=== PATIENT | female | born 1940 | race Caucasian/White ===

== ENCOUNTER → 2024-02-26 06:30 | Outpatient (REF) | payer MEDICARE, BC, SELFPAY ==
[2024-02-26 07:25] LABS: % Basophils 0.7 % (0-2); % Eosinophils 1.8 % (0-6); % Immature Granulocytes 0.3 % (0-0.5); % Lymphocytes 19.5 % (20.5-51.1); % Monocytes 7.5 % (1.7-9.3); % Neutrophils 70.2 % (42.2-75.2); Absolute Eosinophils 0.1 10^3/uL (0-0.7); Absolute Lymphocytes 1.2 10^3/uL (1.2-3.4); Absolute Monocytes 0.5 10^3/uL (0.1-0.6); Absolute Neutrophils 4.3 10^3/uL (1.4-6.5); Hematocrit 44.4 % (37.0-47.0); Hemoglobin 14.9 g/dL (12.0-16.0); Mean Corp Hgb Conc. 33.6 g/dL (33.0-37.0); Mean Corpuscular Hgb 31.1 pg (27.0-31.0); Mean Corpuscular Volume 92.7 fL (81.0-99.0); Mean Platelet Volume 10.6 fL (7.4-10.4); Nucleated Red Blood Cells % 0 %; Platelet Count 259 10^3/uL (130-400); Red Blood Cell Count 4.79 10^6/uL (4.20-5.40); Red Cell Dist. Width 12.4 % (11.5-14.5); White Blood Cell Count 6.1 10^3/uL (4.8-10.8)
[2024-02-26 07:33] LABS: Urine Albumin 1+ (Neg - Trace); Urine Bilirubin 1+ (Negative); Urine Character Slightly Cloudy (Clear); Urine Color Yellow; Urine Glucose Negative (Negative); Urine Ketone Trace (Negative); Urine Leukocyte 2+ (Negative); Urine Nitrite Negative (Negative); Urine Occult Blood 2+ (Negative); Urine Urobilinogen Negative (Neg - 1+)
[2024-02-26 07:55] LABS: ALT (SGPT) 18 U/L (0-35); AST (SGOT) 23 U/L (14-36); Albumin 4.1 g/dl (3.5-5.0); Alkaline Phosphatase 77 U/L (38-126); Blood Urea Nitrogen 23 mg/dl (7-17); Calcium 9.3 mg/dl (8.4-10.2); Carbon Dioxide 31 mmol/L (22-30); Chloride 101 mmol/L (98-107); Glucose 99 mg/dl (70-99); HDL Cholesterol 52 mg/dl; LDL Cholesterol, Calculated 90 mg/dl; Potassium 4.4 mmol/L (3.5-5.1); Sodium 139 mmol/L (135-145); Total Bilirubin 0.6 mg/dl (0.2-1.3); Total Cholesterol 158 mg/dl (50-199); Total Protein 6.8 g/dl (6.3-8.2); Triglyceride 81 mg/dl (10-149); Very Low Density Lipoprotein 16 mg/dl (0-30); eGFR > 60.00
[2024-02-26 08:04] LABS: Glycohemoglobin (HgbA1c) 5.5 % (4.0-5.6)
[2024-02-26 08:10] LABS: Urine Squamous Cell SEEN /LPF (Few); Urine White Cell >100 /HPF (0-5)
[2024-02-26 08:11] LABS: Urine Red Blood Cell None Seen /HPF (0-2)
== END ==
LOC: REG 06:30
PROVIDERS: ATTENDING PHYSICIAN Family Medicine
DX: N30.90 Cystitis, unspecified without hematuria (principal); E78.2 Mixed hyperlipidemia; D64.9 Anemia, unspecified; I10 Essential (primary) hypertension; R73.01 Impaired fasting glucose
CPT/HCPCS: 36415; 80053; 80061; 81003; 81015; 83036; 85025; 87077; 87086; 87186

== ENCOUNTER → 2024-04-03 06:35 | Outpatient (REF) | payer MEDICARE, BC, SELFPAY ==
[2024-04-03 08:07] LABS: Urine Albumin Negative (Neg - Trace); Urine Bilirubin Negative (Negative); Urine Character Clear (Clear); Urine Color Yellow; Urine Glucose Negative (Negative); Urine Ketone Negative (Negative); Urine Leukocyte 2+ (Negative); Urine Nitrite Negative (Negative); Urine Occult Blood Negative (Negative); Urine Urobilinogen Negative (Neg - 1+)
[2024-04-03 08:35] LABS: Urine Amorphous Seen
[2024-04-03 08:37] LABS: Urine Red Blood Cell 0-2 /HPF (0-2); Urine Urothelial Cell 0-2 /LPF (FEW)
[2024-04-03 08:38] LABS: Urine Bacteria Many (Negative)
== END ==
LOC: REG 06:35
PROVIDERS: ATTENDING PHYSICIAN Family Medicine
DX: N30.00 Acute cystitis without hematuria (principal)
CPT/HCPCS: 81003; 81015; 87077; 87086; 87186

== ENCOUNTER → 2024-04-17 08:29 | Outpatient (REF) | payer MEDICARE, BC, SELFPAY ==
[2024-04-17 10:20] LABS: Urine Albumin Negative (Neg - Trace); Urine Bilirubin Negative (Negative); Urine Character Clear (Clear); Urine Color Yellow; Urine Glucose Negative (Negative); Urine Ketone Negative (Negative); Urine Leukocyte Negative (Negative); Urine Nitrite Negative (Negative); Urine Occult Blood Negative (Negative); Urine Urobilinogen Negative (Neg - 1+)
== END ==
LOC: REG 08:29
PROVIDERS: ATTENDING PHYSICIAN Family Medicine; REFERRING PHYSICIAN Obstetrics & Gynecology
DX: R30.0 Dysuria (principal)
CPT/HCPCS: 81003

== ENCOUNTER → 2024-05-23 06:52 | Outpatient (REF) | payer MEDICARE, BC, SELFPAY | LOC: WDC 06:52 | PROVIDERS: ATTENDING PHYSICIAN Family Medicine | DX: Z12.31 Encounter for screening mammogram for malignant neoplasm of breast (principal) | CPT/HCPCS: 77063; 77067 ==

== ENCOUNTER → 2024-08-13 07:00 | Outpatient (REF) | payer MEDICARE, BC, SELFPAY ==
[2024-08-13 07:41] LABS: % Basophils 0.7 % (0-2); % Immature Granulocytes 0.2 % (0-0.5); % Lymphocytes 23.2 % (20.5-51.1); % Monocytes 7.9 % (1.7-9.3); Absolute Eosinophils 0.1 10^3/uL (0-0.7); Absolute Lymphocytes 1.1 10^3/uL (1.2-3.4); Absolute Monocytes 0.4 10^3/uL (0.1-0.6); Hematocrit 43.7 % (37.0-47.0); Hemoglobin 14.6 g/dL (12.0-16.0); Mean Corp Hgb Conc. 33.4 g/dL (33.0-37.0); Mean Corpuscular Hgb 31.2 pg (27.0-31.0); Mean Corpuscular Volume 93.4 fL (81.0-99.0); Mean Platelet Volume 10.1 fL (7.4-10.4); Nucleated Red Blood Cells % 0 %; Platelet Count 250 10^3/uL (130-400); Red Blood Cell Count 4.68 10^6/uL (4.20-5.40); Red Cell Dist. Width 12.9 % (11.5-14.5); White Blood Cell Count 4.6 10^3/uL (4.8-10.8)
[2024-08-13 08:05] LABS: ALT (SGPT) 22 U/L (0-35); AST (SGOT) 25 U/L (14-36); Albumin 4.1 g/dl (3.5-5.0); Alkaline Phosphatase 72 U/L (38-126); Blood Urea Nitrogen 18 mg/dl (7-17); Calcium 9.3 mg/dl (8.4-10.2); Carbon Dioxide 32 mmol/L (22-30); Chloride 102 mmol/L (98-107); Glucose 109 mg/dl (70-99); HDL Cholesterol 50 mg/dl; LDL Cholesterol, Calculated 92 mg/dl; Potassium 4.6 mmol/L (3.5-5.1); Sodium 140 mmol/L (135-145); Total Bilirubin 0.9 mg/dl (0.2-1.3); Total Cholesterol 155 mg/dl (50-199); Total Protein 6.7 g/dl (6.3-8.2); Triglyceride 66 mg/dl (10-149); Very Low Density Lipoprotein 13 mg/dl (0-30); eGFR > 60.00
== END ==
LOC: REG 07:00
PROVIDERS: ATTENDING PHYSICIAN Family Medicine
DX: D64.9 Anemia, unspecified (principal); E78.2 Mixed hyperlipidemia
CPT/HCPCS: 36415; 80053; 80061; 85025

== ENCOUNTER → 2024-08-26 13:31 | Outpatient (REF) | payer MEDICARE, BC, SELFPAY ==
[2024-08-26 14:42] LABS: Erythrocyte Sed Rate 18 mm/hour (0-20)
== END ==
LOC: REG 13:31
PROVIDERS: ATTENDING PHYSICIAN Family Medicine
DX: M79.10 Myalgia, unspecified site (principal)
CPT/HCPCS: 36415; 85652; 86140; 86618

== ENCOUNTER 2024-09-23 09:02 | Outpatient (RCR) | payer MEDICARE, BC, SELFPAY | END 2024-09-23 23:59 | disposition home or self-care (01) | LOC: RPT 09:02 | PROVIDERS: ATTENDING PHYSICIAN Family Medicine | DX: M25.511 Pain in right shoulder (principal); M25.512 Pain in left shoulder; Z73.6 Limitation of activities due to disability; M62.81 Muscle weakness (generalized) | CPT/HCPCS: 97010; 97110; 97112; 97140; 97162; 97530 ==

== ENCOUNTER → 2025-02-11 06:45 | Outpatient (REF) | payer MEDICARE, BC, SELFPAY ==
[2025-02-11 07:22] LABS: % Basophils 0.7 % (0-2); % Immature Granulocytes 0.3 % (0-0.5); % Lymphocytes 16.8 % (20.5-51.1); % Monocytes 7.5 % (1.7-9.3); % Neutrophils 72.7 % (42.2-75.2); Absolute Eosinophils 0.1 10^3/uL (0-0.7); Absolute Monocytes 0.5 10^3/uL (0.1-0.6); Absolute Neutrophils 4.5 10^3/uL (1.4-6.5); Hematocrit 36.2 % (37.0-47.0); Hemoglobin 12.6 g/dL (12.0-16.0); Mean Corp Hgb Conc. 34.8 g/dL (33.0-37.0); Mean Corpuscular Hgb 31.7 pg (27.0-31.0); Mean Platelet Volume 10.5 fL (7.4-10.4); Nucleated Red Blood Cells % 0 %; Platelet Count 215 10^3/uL (130-400); Red Blood Cell Count 3.98 10^6/uL (4.20-5.40); Red Cell Dist. Width 12.6 % (11.5-14.5); White Blood Cell Count 6.1 10^3/uL (4.8-10.8)
[2025-02-11 07:44] LABS: ALT (SGPT) 17 U/L (0-35); AST (SGOT) 20 U/L (14-36); Alkaline Phosphatase 77 U/L (38-126); Blood Urea Nitrogen 18 mg/dl (7-17); Calcium 9.3 mg/dl (8.4-10.2); Carbon Dioxide 29 mmol/L (22-30); Chloride 106 mmol/L (98-107); Glucose 109 mg/dl (70-99); Potassium 4.5 mmol/L (3.5-5.1); Sodium 140 mmol/L (135-145); Total Bilirubin 0.8 mg/dl (0.2-1.3); Total Protein 6.8 g/dl (6.3-8.2); eGFR > 60.00
[2025-02-11 10:27] LABS: Glycohemoglobin (HgbA1c) 5.6 % (4.0-5.6)
== END ==
LOC: REG 06:45
PROVIDERS: ATTENDING PHYSICIAN Family Medicine
DX: E78.2 Mixed hyperlipidemia (principal); R73.01 Impaired fasting glucose; D64.9 Anemia, unspecified
CPT/HCPCS: 36415; 80053; 83036; 85025

== ENCOUNTER → 2025-05-22 07:05 | Outpatient (REF) | payer MEDICARE, BC, SELFPAY | LOC: WDC 07:05 | PROVIDERS: ATTENDING PHYSICIAN Family Medicine | DX: Z12.39 Encounter for other screening for malignant neoplasm of breast (principal); Z12.31 Encounter for screening mammogram for malignant neoplasm of breast | CPT/HCPCS: 77063; 77067 ==

== ENCOUNTER 2025-07-26 19:11 | Emergency (ER) | payer MEDICARE, BC, SELFPAY ==
[2025-07-26] VITALS (8 sets, daily range): BP systolic 115–173; BP diastolic 56–74; BMI 29.0
[2025-07-26 19:52] LABS: Hematocrit 39.6 % (37.0-47.0); Hemoglobin 13.4 g/dL (12.0-16.0); Mean Corp Hgb Conc. 33.8 g/dL (33.0-37.0); Mean Corpuscular Volume 92.1 fL (81.0-99.0); Nucleated Red Blood Cells % 0 %; Platelet Count 233 10^3/uL (130-400); Red Cell Dist. Width 12.6 % (11.5-14.5)
--- NOTE | 2025-07-26 20:08 | ED.GENMED ---
History of Present Illness
General
Chief Complaint: Heart Rate Problem
Time Seen by Provider: 07/26/25 20:08
History of Present Illness
History of Present Illness:
FOCUSED PAST MEDICAL HISTORY
- Trigeminal neuralgia, A-fib, CAD
REVIEW OF OLD RECORDS
- I reviewed records, the patient was admitted with symptomatic persistent A-fib and underwent complex left atrial mapping and ablation
Note:
CHIEF COMPLAINT(S)
Dizziness with nausea.
HISTORY OF PRESENT ILLNESS
The patient is an 85-year-old female who experienced a sudden onset of dizziness at about 11:00 AM while attending a [employer] class. She reports that when she attempted to sit up from a supine position, she experienced extreme dizziness that
prevented her from standing, stating, 'If I tried to stand up, Id go right down.' She describes the dizziness as persistent throughout the day, albeit slightly less intense than the initial episode. The dizziness was later accompanied by nausea. The
patient denies vertiginous spinning or movement sensations but confirms a severe dizziness that was worsened upon positional changes during a [place]-Hallpike maneuver test. She has a history of atrial fibrillation treated with ablation and is currently
in normal sinus rhythm.
PAST MEDICAL AND SURIGICAL HISTORY
The patient has a history of atrial fibrillation for which she has undergone ablation.
MEDICATIONS
The patient is currently taking Apixaban (Eliquis).
PHYSICAL EXAM
General: Alert, no acute distress.
Skin: Warm, dry.
Head: Normocephalic, atraumatic.
Neck: Supple, trachea midline.
Eyes, Ears, Nose, Mouth, and Throat: Oral mucosa moist.
Cardiovascular: Normal peripheral perfusion, no edema. Lightly bradycardic at times, regular rhythm.
Respiratory: Respirations are non-labored.
Gastrointestinal: Abdomen nondistended.
Back: Normal range of motion, normal alignment.
Musculoskeletal: Normal range of motion, normal strength.
Neurological: Alert and oriented to person, place, time, and situation. Normal [id number] testing. [place]-Hallpike maneuver induces dizziness. No focal neurological deficit observed. Stroke scale 0.
Psychiatric: Cooperative, appropriate mood & affect.
PLAN
The patient will remain under observation for continued monitoring and to await additional blood work results. A referral for vestibular physical therapy will be provided to address the inner ear-related dizziness. The patient is to continue on
Apixaban (Eliquis) for her atrial fibrillation management.
DIFFERENTIAL DIAGNOSIS
The differential diagnosis includes, in no particular order and is not limited to:
1. Benign paroxysmal positional vertigo (BPPV)
2. Labyrinthitis
3. Vestibular neuritis
4. Menieres disease
5. Inner ear infection or inflammation
6. Cerebral vascular event (e.g., transient ischemic attack)
7. Orthostatic hypotension
8. Medication side effects
9. Atrial fibrillation with rapid ventricular response
10. Anxiety or panic disorder
RADIOLOGY
Chest x-ray shows no acute abnormality
EKG
- Sinus 70, left axis deviation, nonspecific ST abnormality,
LABS
- CBC normal, chemistries relatively unremarkable
SUMMARY OF ENCOUNTER
The patient, an 85-year-old female with a history of atrial fibrillation treated with ablation, presented to the emergency department with a sudden onset of dizziness experienced during a Pil[employer] class. She was evaluated for dizziness accompanied by
nausea but without vertiginous spinning sensations. A detailed neurological examination was normal, and blood tests did not show any alarming results. Given her presentation and normal neurological findings, a CT scan was deemed unnecessary as it
would not reveal vertigo-related issues. A prescription for Meclizine was offered both as an in-house dose and as a prescription for continued use if effective. The patient was recommended for vestibular physical therapy to address suspected
positional vertigo.
DISPOSITION
Discharge.
ASSESSMENT
The clinical assessment suggests that the patient likely has benign paroxysmal positional vertigo.
PLAN
The patient is to receive a dose of Meclizine while in the emergency department, and a prescription will be sent to her pharmacy for further use if she finds it helpful. She is advised to contact a vestibular physical therapist for further
evaluation and management.
PATIENT EDUCATION AND COUNSELING
The patient was informed about the nature of positional vertigo, the expected course of symptoms, and that they should gradually improve over time. She was also informed about vestibular rehabilitation maneuvers and the potential effect of
Meclizine, emphasizing its sedative properties and that it should only be used as needed.
FOLLOW-UP INSTRUCTIONS
The patient was advised to contact a vestibular physical therapist on the upcoming Monday for follow-up. Further instructions were given to monitor symptoms and to seek follow-up if symptoms persist or worsen.
MEDICATION RECONCILIATION
Meclizine prescribed, with a dose administered in the emergency department.
MEDICAL DECISION MAKING
-Complexity of Data Reviewed:
Chronic conditions affecting care include atrial fibrillation. The differential diagnosis includes:
1. Benign paroxysmal positional vertigo (BPPV)
2. Labyrinthitis
3. Vestibular neuritis
4. Menieres disease
5. Inner ear infection or inflammation
6. Cerebral vascular event (e.g., transient ischemic attack)
7. Orthostatic hypotension
8. Medication side effects
9. Atrial fibrillation with rapid ventricular response
10. Anxiety or panic disorder
-Data:
Category 1
Non-emergency department records reviewed.
- Risk:
Prescription medication was prescribed (Meclizine).
DIAGNOSIS
Benign paroxysmal positional vertigo (BPPV) - ICD-10-CM H81.10
UPDATE
- Positive Carmen-Hallpike
- Normal neurologic exam
- No headache
- Rate controlled A-fib
- I suggested that meclizine probably will not help, but patient prefers to try medication
- Paper prescription given for vestibular physical therapy
- No significant symptoms at rest while in structure throughout stay in
Past History
Past History
ED Past Medical History: Arrthythmia (Paroxysmal atrial fibrillation), GERD, HTN and Other (Barretts Esophages)
ED Past Surgical History: Appendectomy, Cardiac (Ablation), Cholecystectomy and Orthopedic (Femor Fracture. L knee replacement)
Social History
Tobacco: Non-smoker
Alcohol: Occasional
Drug: None
Personal:
Living: with family
Employment: Retired
Family History
Family History: Other (Mom had a stroke at age 65); Negative Diabetes or CAD
Phy Exam
Physical Exam
Physical Exam:
See HPI
Course
Orders/Labs/Results
Orders:
Orders
07/26/25 19:13
Electrocardiogram (*1) Urgent
Reason for Study: Other
Other Reason for Exam: Respiratory Distress
Cardiac Monitoring- Treatment ONCE
EKG- Treatment ONCE
IV Insert/Care/Rem.- Treatment PRN
CR Chest - 2 Views Urgent
Comment:
Reason For Exam: respiratory distress
O2 Therapy [RESP] Urgent
Titrate/Wean O2 to maintain O2 sat greater than (%): 93
Special Instructions: TO MAINTAIN CONTINUOUS O2 SATS >/= 93%
Pulse Ox/cont/shift [RESP] Urgent
Quantity: 1
Special Instructions: continuous pulse ox
07/26/25 19:30
Complete Blood Count/With Diff Urgent
Comprehensive Metabolic Panel Urgent
NT-proBNP Urgent
Troponin I Urgent
07/26/25 22:14
Meclizine [Antivert] 25 mg PO NOW STA
Abnormal Lab Results
07/26/25
19:30
MCH 31.2 H pg
(27.0-31.0)
MPV 10.6 H fL
(7.4-10.4)
Sodium 134 L mmol/L
(135-145)
Carbon Dioxide 31 H mmol/L
(22-30)
BUN 19 H mg/dl
(7-17)
Glucose 140 H mg/dl
(70-99)
07/26/25 19:30
07/26/25 19:30
Vital Signs
Initial and Last Documented VS:
Initial Vital Signs
Temp Pulse Resp BP Pulse Ox
36.5 C 67 18 173/74 98
07/26/25 19:13 07/26/25 19:13 07/26/25 19:13 07/26/25 19:13 07/26/25 19:13
Last Documented Vital Signs
Temp Pulse Resp BP Pulse Ox
36.5 C 46 15 127/70 97
07/26/25 19:13 07/26/25 22:15 07/26/25 22:15 07/26/25 22:00 07/26/25 22:15
*Pulse Oximetry
SaO2: 98
Oxygen Mode of Delivery: Room air
Patient hypoxic: no
*Critical Care Note
Total Time (30-74mins, 75-104mins- exclusive of procedures): Not Applicable
ED Attending Note
-
Portions of this chart may have been created with voice recognition software.� Occasional wrong word or��sound alike� substitutions may have occurred due to the inherent limitations of voice recognition software.
Discharge Plan
Departure
Patient Disposition: Home (Routine Discharge)
Date of Disposition: 07/26/25
Time of Disposition: 22:14
Patient with high blood pressure during this ER visit?: Yes
Discharge Problem:
Benign paroxysmal positional vertigo
Instructions: Vertigo (a type of dizziness), Exercises (maneuvers) for benign paroxysmal positional vertigo, BLOOD PRESSURE
Prescriptions:
New
meclizine 25 mg tablet
25 mg PO BID PRN (Reason: dizziness) Qty: 14 0RF
No Action
pantoprazole 40 MG tablet,delayed release (DR/EC)
40 mg PO DAILY
dofetilide 500 MCG capsule
250 mcg PO Q12
amlodipine 10 MG tablet
10 mg PO 1900
acetaminophen 325 MG tablet
650 mg PO QID PRN (Reason: pain)
spironolactone 25 MG tablet
25 mg PO DAILY
Eliquis 5 MG tablet
5 mg PO BID
furosemide 20 mg Tablet
20 mg PO DAILY
cholecalciferol (vitamin D3) [Vitamin D3] 50 mcg (2,000 unit) Tablet
50 mcg PO DAILY
omega [id number] oil [Fish Oil] 1,200 (144-216) mg Capsule
1 cap PO DAILY
Referrals:
UNKNOWN - PT NOT,INTERVIEWE [Unknown Provider]
Activity Restrictions/Additional Instructions:
I handed you a paper prescription for vestibular physical therapy. I recommend that you call [phone] to arrange outpatient vestibular physical therapy. If the meclizine helps you, you can start meclizine�I sent a prescription to your pharmacy.
Interventions
Interventions:
*Risk Screen - Suicide Last Done: 07/26/25 19:13
*Neglect/Abuse Screening Last Done: 07/26/25 19:13
ED- Cardiac Assessment Last Done: 07/26/25 19:49
ED- Pulmonary Assessment Last Done: 07/26/25 19:49
Discharge Date and Time
Print Language: DOMINICAN
[2025-07-26 20:12] LABS: ALT (SGPT) 16 U/L (0-35); AST (SGOT) 21 U/L (14-36); Albumin 4.0 g/dl (3.5-5.0); Alkaline Phosphatase 72 U/L (38-126); Blood Urea Nitrogen 19 mg/dl (7-17); Calcium 8.7 mg/dl (8.4-10.2); Carbon Dioxide 31 mmol/L (22-30); Chloride 101 mmol/L (98-107); Estimated Creatinine Clearance 53 ml/min; Glucose 140 mg/dl (70-99); Potassium 3.9 mmol/L (3.5-5.1); Sodium 134 mmol/L (135-145); Total Protein 6.6 g/dl (6.3-8.2); eGFR > 60.00
[2025-07-26 20:21] LABS: Troponin I < 0.012 ng/ml
[2025-07-26] MEDS: ANTIVERT 25 MG PO (22:18)
== END 2025-07-26 22:38 | disposition home or self-care (01) ==
LOC: EMR 19:11
PROVIDERS: Emergency Medicine; EMERGENCY PHYSICIAN Emergency Medicine; FAMILY PHYSICIAN Family Medicine
DX: H81.10 Benign paroxysmal vertigo, unspecified ear (principal); R11.0 Nausea; I48.0 Paroxysmal atrial fibrillation; K21.9 Gastro-esophageal reflux disease without esophagitis; I10 Essential (primary) hypertension; K22.70 Barrett's esophagus without dysplasia; I25.10 Atherosclerotic heart disease of native coronary artery without angina pectoris; Z96.652 Presence of left artificial knee joint; Z79.01 Long term (current) use of anticoagulants; Z90.49 Acquired absence of other specified parts of digestive tract; Z88.1 Allergy status to other antibiotic agents; Z88.8 Allergy status to other drugs, medicaments and biological substances
CPT/HCPCS: 99285; 94760; 71046; 80053; 83880; 84484; 85025; 93005

== ENCOUNTER → 2025-08-15 07:51 | Outpatient (REF) | payer MEDICARE, BC, SELFPAY ==
[2025-08-15 08:53] LABS: Hematocrit 39.5 % (37.0-47.0); Hemoglobin 13.2 g/dL (12.0-16.0); Mean Corp Hgb Conc. 33.4 g/dL (33.0-37.0); Mean Corpuscular Volume 95.2 fL (81.0-99.0); Nucleated Red Blood Cells % 0 %; Platelet Count 239 10^3/uL (130-400); Red Cell Dist. Width 12.4 % (11.5-14.5)
[2025-08-15 09:37] LABS: ALT (SGPT) 16 U/L (0-35); AST (SGOT) 22 U/L (14-36); Albumin 4.1 g/dl (3.5-5.0); Alkaline Phosphatase 80 U/L (38-126); Blood Urea Nitrogen 27 mg/dl (7-17); Calcium 9.2 mg/dl (8.4-10.2); Carbon Dioxide 28 mmol/L (22-30); Chloride 102 mmol/L (98-107); Glucose 94 mg/dl (70-99); HDL Cholesterol 48 mg/dl; LDL Cholesterol, Calculated 71 mg/dl; Potassium 4.7 mmol/L (3.5-5.1); Sodium 137 mmol/L (135-145); Total Protein 6.6 g/dl (6.3-8.2); Very Low Density Lipoprotein 12 mg/dl (0-30); eGFR > 60.00
== END ==
LOC: REG 07:51
PROVIDERS: ATTENDING PHYSICIAN Family Medicine
DX: D72.810 Lymphocytopenia (principal); R73.01 Impaired fasting glucose; E78.2 Mixed hyperlipidemia
CPT/HCPCS: 36415; 80053; 80061; 85025